=== PATIENT | male | born 1975 | race Caucasian/White ===

== ENCOUNTER 2017-03-16 15:31 | Emergency (ER) | payer BC ==
[~2017-03-16] VITALS: Ht 180.3 cm; Wt 94.7 kg
[~2017-03-16 15:31] MED LIST: GLC500 PO; MTRUNK; MULT-506 PO; OXYC-57 PO
[2017-03-16 15:42] VITALS: Ht 180.3 cm; Wt 94.7 kg
[2017-03-16] MEDS ORDERED: DIPHTHERIA/TETANUS/PERTUSSIS 0.5 ML SYR/VIAL IM. ONE (16:00)
[2017-03-16] MEDS ORDERED: XYLOCAINE 1%/SOD BICARB 20 ML VIAL INFIL ONE (16:00)
[2017-03-16] MEDS ORDERED: METF-384 PO (16:09)
[2017-03-16] MEDS ORDERED: FEXO1TAB49 PO (16:09)
[2017-03-16] MEDS ORDERED: IBUP-1450 PO (16:09)
[2017-03-16] MEDS ORDERED: LISI-729 PO (16:09)
[2017-03-16] MEDS ORDERED: FLUT0.15 NAE (16:09)
[2017-03-16] MEDS ORDERED: SITA50TA PO (16:09)
[2017-03-16] MEDS ORDERED: SIMV40TA2 PO (16:09)
[2017-03-16] MEDS ORDERED: MULT-188 PEG (16:22)
[2017-03-16] MEDS ORDERED: GLUCTAB7 PO (16:22)
[2017-03-16 16:31] VITALS: BP 116/79; PULSE 70; TEMP 36.5; O2SAT 100
--- NOTE | 2017-03-16 16:32 | EMERGENCY ROOM VISIT NOTE ---
History First contact with patient: 15:44 Chief Complaint: LACERATION/CUT (SUT/DERMABOND) Stated Complaint: LACERATION History of Present Illness The patient is a 41 year old male who presents to the Emergency Room with complaints of a laceration to the forehead after a wrench slipped while working on his car. The patient reports moderate bleeding from the wound. He reports pain around the wound, but denies any additional significant headache, neck pain , nausea or other concerning symptoms. The patient reports that his last tetanus immunization is somewhere around 10 years. He rates his discomfort a 2 out of 10. Review of Systems 6 system review was performed and was negative except for pertinent positives and negatives as indicated in history of present illness Past Medical/Surgical History Medical Problems: (1) Diabetes (2) Hypercholesterolemia (3) Hypertension Surgical Problems: (1) History of cholecystectomy (2) History of orthopedic surgery Family History FH: cancer FH: diabetes mellitus FH: gallbladder disease FH: heart disease FH: hypertension Social History Smoking Status: Never Smoker Alcohol Use: none Marital Status: single Housing Status: lives with family Occupation Status: employed Current/Historical Medications Scheduled Kgkdgihqsfb-Imohkpsvdcu-Hsk C- (Glucosamine Chondroitin), 1 TAB PO DAILY Lisinopril (Zestril), 5 MG PO Q2D Metformin Hcl (Glucophage), 1,000 MG PO BID Multiple Vitamins W/ Minerals (Ocuvite), 1 TAB PEG DAILY Multivitamin (Multivitamin), 1 TAB PO DAILY Simvastatin (Zocor), 40 MG PO QPM Sitagliptin Phosphate (Januvia), 50 MG PO DAILY Scheduled PRN Fexofenadine Hcl (Kimmy Allergy), 1 TAB PO DAILY PRN for Seasonal Allergies Fluticasone Propionate (Nasal) (Flonase Allergy Relief), 2 SPRAYS GLORIA DAILY PRN for Nasal Congestion Ibuprofen (Motrin), 600 MG PO TID PRN for Pain Physical Exam Vital Signs Date Time Temp Pulse Resp B/P (MAP) Pulse Ox O2 Delivery O2 Flow Rate FiO2 03/16/17 15:42 36.5 80 16 128/83 97 Room Air Physical Exam CONSTITUTIONAL: Healthy and well nourished. Alert and oriented X 3 with positive affect. HEENT: Examination shows a stellate central forehead laceration without active bleeding or hematoma formation. Total laceration length is 1 cm. Pupils equal , round and reactive. NECK: Full active range of motion without discomfort. MUSCULOSKELETAL: Full range of motion of all joints without discomfort. INTEGUMENTARY: No rash or other significant dermatologic conditions noted. NEUROLOGIC: No focal neurologic deficits noted. Medical Decision & Procedures Procedure Laceration repair was performed under local anesthesia after receiving verbal consent from the patient. Using buffered 1% lidocaine without epinephrine, good local anesthesia was administered. The wound was then peripherally cleansed with iodine, then lightly irrigated with normal saline. The wound was then approximated using 6-0 nylon simple interrupted sutures. A bacitracin bandage was applied. ED Course Patient history and physical exam were performed. Nurse's notes were reviewed. Vital signs were reviewed and were normal. Laceration repair was performed under local anesthesia. The patient was also administered Adacel IM. The patient was provided additional verbal and written wound care instructions. He was encouraged to intermittently apply ice as needed for swelling and pain. Ibuprofen or Tylenol if needed for additional pain relief. Suture removal in 5- 7 days, or seek reevaluation sooner for any signs of wound infection. The patient was happy with plan of care, voiced understanding of all discharge instructions, and denied any pain at the time of discharge. Medical Decision Blood Pressure Screening Patient's blood pressure: Normal blood pressure Impression Primary Impression: Forehead laceration Departure Information Dispostion Home / Self-Care Forms HOME CARE DOCUMENTATION FORM, IMPORTANT VISIT INFORMATION Patient Instructions [facility] Additional Instructions Keep wound clean and dry. Do not allow any crusting or dried blood to accumulate on sutures. If this occurs, use a 1:1 solution of hydrogen peroxide/ water on a Q-tip to clean the wound. Use an antibiotic ointment for 3 days, then let wound dry. Suture removal in 5-7 days. Return sooner for any signs of infection (increasing redness, swelling, drainage). Ice for swelling. Ibuprofen 600 mg and/or Tylenol 1000 mg every 6 hrs as needed for pain. Problem Qualifiers Primary Impression: Forehead laceration Encounter type: initial encounter Qualified Codes: S01.81XA - Laceration without foreign body of other part of head, initial encounter
== END 2017-03-16 16:44 | disposition home or self-care (01) ==
LOC: C.EDB 15:32 → C.EDD 16:44
DX: S01.81XA Laceration without foreign body of other part of head, initial encounter (principal); W27.8XXA Contact with other nonpowered hand tool, initial encounter; Y93.89 Activity, other specified; Y99.8 Other external cause status; E11.9 Type 2 diabetes mellitus without complications; E78.00 Pure hypercholesterolemia, unspecified; I10 Essential (primary) hypertension; Z23 Encounter for immunization; Z90.49 Acquired absence of other specified parts of digestive tract; Z98.890 Other specified postprocedural states; Z83.3 Family history of diabetes mellitus; Z82.49 Family history of ischemic heart disease and other diseases of the circulatory system; Z79.84 Long term (current) use of oral hypoglycemic drugs; Z79.899 Other long term (current) drug therapy